=== PATIENT | female | born 1975 | race Caucasian/White ===

== ENCOUNTER 2017-05-01 14:13 | Inpatient (IN) | payer OTHER ==
[2017-05-01] MEDS ORDERED: MENTHOL/PHENOL 1 EACH UD MM PRN (15:13)
[2017-05-01] MEDS ORDERED: ACETAMINOPHEN 325 MG TABLET (FP) PO PRN (15:13)
[2017-05-01] MEDS ORDERED: MAGNESIUM CITRATE 300 ML BOTTLE PO PRN (15:13)
[2017-05-01] MEDS ORDERED: MAG HYDROX/AL HYDROX/SIMETH 30 ML UNIT-DOSE CUP PO PRN (15:13)
[2017-05-01] MEDS ORDERED: LOPERAMIDE HCL 2 MG CAPSULE PO PRN (15:13)
[2017-05-01] MEDS ORDERED: guaiFENesin/D-METHORPHAN HB 10 ML UNIT-DOSE CUPS PO PRN (15:13)
[2017-05-01] MEDS ORDERED: P-EPHED 60MG/TRIPROLIDI 2.5MG TABLET PO PRN (15:13)
[2017-05-01] MEDS ORDERED: LIDOCAINE VISCOUS 2% ORAL/TOP 20 ML UNIT-DOSE CUP MM PRN (15:19)
--- NOTE | 2017-05-01 16:34 | HP ---
[facility] Rehab Assess/Revision - Admission History Admitted to Rehab from: [facility] Date of Admission to Rehab: 05/01/17 - Vital signs Vital Signs: Vital Signs Period Temp Pulse Resp BP Sys/Brian Pulse Ox Last 24 Hr 98.1 F 83 18 106/80 - Findings Detox History & Physical reviewed: Yes Concur with findings: Yes Comments/Additional Findings: transferred from detox to rehab admission as per protocol Inpatient Rehab Admission - Initial Determination Are CD services needed?: Yes Free of communicable disease: Yes Not in need of hospitalization: Yes - Rehab Admission Criteria Previous failed treatment: Yes Poor recovery environment: Yes Comorbidities: Yes Lacks judgement: No Patient is meeting Inpatient Rehab admission criteria:: Yes
[2017-05-01] MEDS: AMOX TR/POT CLAV 875MG/125MG TABLETS (FP) PO SCH (17:08)
[2017-05-01] MEDS: NICOTINE POLACRILEX 4 MG GUM BUC PRN (17:08)
[2017-05-01] MEDS: FERROUS SO4 325 MG TABLET (FP) PO SCH (17:08)
[2017-05-01] MEDS: ALBUTEROL SO4 18 GM HFA INHALER IH PRN (17:53)
[2017-05-01] MEDS: FLUOCINONIDE 0.05% CREAM (60 GM TUBE) TP SCH ×2 (19:19→21:22)
[2017-05-01] MEDS: QUEtiapine FUMARATE 25 MG TABLET (FP) PO SCH (21:21)
[2017-05-01] MEDS: THIAMINE HCL 100 MG TABLET (FP) PO SCH (21:21)
[2017-05-01] MEDS: hydrOXYzine PAMOATE 50 MG CAPSULE (FP) PO PRN (21:22)
[2017-05-02] MEDS: IBUPROFEN 400 MG TABLET (FP) PO PRN ×2 (05:09→17:07)
[2017-05-02] MEDS: ALBUTEROL SO4 18 GM HFA INHALER IH PRN ×3 (05:09→14:07)
[2017-05-02] MEDS: FERROUS SO4 325 MG TABLET (FP) PO SCH ×3 (07:24→17:08)
[2017-05-02] MEDS: AMOX TR/POT CLAV 875MG/125MG TABLETS (FP) PO SCH ×2 (07:24→17:08)
[2017-05-02] MEDS: FLUOCINONIDE 0.05% CREAM (60 GM TUBE) TP SCH ×4 (09:25→21:24)
[2017-05-02] MEDS: NICOTINE 21 MG/24 HOURS TOPICAL PATCH TD SCH (09:26)
[2017-05-02] MEDS: PRENATAL VITAMINS W/ FOLIC ACID TABLET (FP) PO SCH (09:26)
--- NOTE | 2017-05-02 12:30 | PN ---
[facility] Progress Note Note: co depression psoriasis and dandruff already on fluocinode cream also co asthma worsened thinks env will add ketoconazole shampoo rec biw washing add singulair fu psych re co depression
[2017-05-02] MEDS: KETOCONAZOLE 2 % SHAMPOO 120 ML BOTTLE TP SCH (13:05)
[2017-05-02] MEDS ORDERED: PT OWN MED DRAWER 7, Y5N ONE ×2 (14:08→20:00)
[2017-05-02] MEDS: MONTELUKAST NA 10 MG TABLET PO SCH (21:21)
[2017-05-02] MEDS: THIAMINE HCL 100 MG TABLET (FP) PO SCH (21:21)
[2017-05-02] MEDS: QUEtiapine FUMARATE 25 MG TABLET (FP) PO SCH (21:23)
[2017-05-03] MEDS: ALBUTEROL SO4 18 GM HFA INHALER IH PRN ×3 (01:55→19:56)
[2017-05-03] MEDS ORDERED: PT OWN MED DRAWER 7, Y5N ONE ×2 (01:55→08:50)
[2017-05-03] MEDS: FERROUS SO4 325 MG TABLET (FP) PO SCH (07:40)
[2017-05-03] MEDS: AMOX TR/POT CLAV 875MG/125MG TABLETS (FP) PO SCH ×2 (07:41→17:36)
[2017-05-03] MEDS ORDERED: ONDANSETRON *ODT* 4 MG TABLET SL PRN (09:54)
--- NOTE | 2017-05-03 09:58 | PN ---
S Progress Note (SOAP) Subjective: c/o bilateral tooth jennifer nand swelling on antibiotics, continued opioid withdrawal sx s/p methadone detox, chills, nausea, vomiting, body aches, fatigue , insomnia, anxiety and depression Objective: 05/03/17 09:56 Vital Signs - 8 hr 05/03/17 05/03/17 03:30 07:43 Temperature 98.0 F Pulse Rate 73 Respiratory 16 18 Rate Blood Pressure 102/69 labs reviewed from last admission Assessment: 05/03/17 09:57 protoacted opioid withdrawal sx, dental caries Plan: cont antibiotics, symptomatic relief of withdrawal medication ordered, more aggressive pain amangement, fluids
[2017-05-03] MEDS ORDERED: ALBUTEROL SO4 2.5/IPRATROPIUM 0.5 INH SOL 3 ML VIAL.NEB. NEB PRN (10:01)
[2017-05-03] MEDS: PRENATAL VITAMINS W/ FOLIC ACID TABLET (FP) PO SCH (10:03)
[2017-05-03] MEDS: NICOTINE 21 MG/24 HOURS TOPICAL PATCH TD SCH (10:03)
[2017-05-03] MEDS: FLUOCINONIDE 0.05% CREAM (60 GM TUBE) TP SCH ×4 (10:03→21:52)
[2017-05-03] MEDS: cloNIDine HCL 0.1 MG TABLET PO SCH ×2 (10:06→21:50)
[2017-05-03] MEDS: CYCLOBENZAPRINE HCL 5 MG TABLET PO SCH (10:07)
[2017-05-03] MEDS: AMITRIPTYLINE HCL 25 MG TABLET (FP) PO SCH ×2 (10:07→21:49)
[2017-05-03] MEDS: NAPROXEN 500 MG TABLET (FP) PO SCH ×2 (10:07→21:50)
[2017-05-03] MEDS: PANTOPRAZOLE 40 MG TABLET (FP) PO SCH (10:08)
[2017-05-03] MEDS: DOCUSATE SODIUM 100 MG CAPSULE (FP) PO SCH ×2 (10:08→21:51)
[2017-05-03] MEDS ORDERED: ONDANSETRON *ODT* 4 MG TABLET SL ONE (10:15)
[2017-05-03] MEDS: GABAPENTIN 100 MG CAPSULE (FP) PO SCH ×2 (13:18→21:49)
[2017-05-03] MEDS: MONTELUKAST NA 10 MG TABLET PO SCH (21:49)
[2017-05-03] MEDS: THIAMINE HCL 100 MG TABLET (FP) PO SCH (21:49)
[2017-05-03] MEDS: QUEtiapine FUMARATE 25 MG TABLET (FP) PO SCH (21:50)
[2017-05-04] MEDS: GABAPENTIN 100 MG CAPSULE (FP) PO SCH ×3 (06:32→21:38)
[2017-05-04] MEDS: AMOX TR/POT CLAV 875MG/125MG TABLETS (FP) PO SCH ×2 (07:01→17:38)
[2017-05-04] MEDS ORDERED: PT OWN MED DRAWER 7, Y5N ONE ×3 (08:35→17:40)
[2017-05-04] MEDS: PRENATAL VITAMINS W/ FOLIC ACID TABLET (FP) PO SCH (10:22)
[2017-05-04] MEDS: CYCLOBENZAPRINE HCL 5 MG TABLET PO SCH (10:22)
[2017-05-04] MEDS: PANTOPRAZOLE 40 MG TABLET (FP) PO SCH (10:22)
[2017-05-04] MEDS: NAPROXEN 500 MG TABLET (FP) PO SCH ×2 (10:23→21:38)
[2017-05-04] MEDS: NICOTINE 21 MG/24 HOURS TOPICAL PATCH TD SCH (10:23)
[2017-05-04] MEDS: FLUOCINONIDE 0.05% CREAM (60 GM TUBE) TP SCH ×4 (10:23→21:39)
[2017-05-04] MEDS: NICOTINE POLACRILEX 4 MG GUM BUC PRN (10:24)
[2017-05-04] MEDS: cloNIDine HCL 0.1 MG TABLET PO SCH (10:26)
[2017-05-04] MEDS: ALBUTEROL SO4 18 GM HFA INHALER IH PRN ×2 (11:05→17:40)
[2017-05-04] MEDS: DOCUSATE SODIUM 100 MG CAPSULE (FP) PO SCH (21:37)
[2017-05-04] MEDS: MONTELUKAST NA 10 MG TABLET PO SCH (21:38)
[2017-05-04] MEDS: AMITRIPTYLINE HCL 25 MG TABLET (FP) PO SCH (21:38)
[2017-05-04] MEDS: QUEtiapine FUMARATE 25 MG TABLET (FP) PO SCH (21:38)
[2017-05-04] MEDS: THIAMINE HCL 100 MG TABLET (FP) PO SCH (21:38)
[2017-05-05] MEDS ORDERED: PT OWN MED DRAWER 7, Y5N ONE ×2 (00:20→08:48)
[2017-05-05] MEDS: GABAPENTIN 100 MG CAPSULE (FP) PO SCH ×3 (06:31→21:40)
[2017-05-05] MEDS: ALBUTEROL SO4 18 GM HFA INHALER IH PRN ×4 (06:32→21:42)
[2017-05-05] MEDS: NICOTINE POLACRILEX 4 MG GUM BUC PRN (07:11)
[2017-05-05] MEDS: AMOX TR/POT CLAV 875MG/125MG TABLETS (FP) PO SCH ×2 (07:12→17:35)
--- NOTE | 2017-05-05 10:15 | HP ---
Psychiatrist Admission - Data Date of interview: 05/05/17 Admission source: [address] [place] [address] Identifying data: This is the first admission to [address] [place] [address] for this 41 years old H single female mother of 2,undomiciled, unemployed,supported by Food stamps. Medical History: Significant for BA,Hep C,H/O Gastric bypass,Anemia,Tubal ligation. Psychiatric History: Reports no psychiatric history,but some sleeping difficulties on/off. Physical/Sexual Abuse/Trauma History: denies Vital Signs: Vital Signs - 24 hr 05/04/17 05/04/17 05/05/17 10:00 23:07 03:30 Temperature Pulse Rate 93 H 98 H Respiratory 18 Rate Blood Pressure 101/62 107/70 05/05/17 05/05/17 07:08 09:27 Temperature 98.1 F Pulse Rate 79 97 H Respiratory 18 Rate Blood Pressure 97/62 107/72 Allergies/Adverse Reactions: Allergies Allergy/AdvReac Type Severity Reaction Status Date / Time No Known Allergies Allergy Verified 04/26/17 10:35 Date of last physical exam: 04/26/17 Concur with the findings of this exam: Yes - Substance Abuse/Tx History Hx Alcohol Use: Yes (drinking since 16 yo,2 pints of vodka daily) Hx Substance Use: Yes (cocaine,crack since 20 yo,heroin IV since 20 yo,now sniffing 10 bags daily) Substance Use Type: Alcohol, Cocaine, Heroin Hx Substance Use Treatment: 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,longest abstinence 6 years) Mental Status Exam - Mental Status Exam Alert and Oriented to: Time, Place, Person Cognitive Function: Grossly Intact Patient Appearance: Unkempt Mood: Anxious Affect: Mood Congruent, Labile Patient Behavior: Cooperative Speech Pattern: Clear Voice Loudness: Normal Thought Process: Goal Oriented Thought Disorder: Not Present Hallucinations: Denies Suicidal Ideation: Denies Homicidal Ideation: Denies Insight/Judgement: Fair Sleep: Fair Appetite: Good Muscle strength/Tone: Normal Gait/Station: Normal Psychiatric Findings - Problem List (Olla 1, 2,3) (1) Drug-induced mood disorder Current Visit: Yes Status: Chronic (2) Asthma Current Visit: Yes Status: Chronic Qualifiers: Asthma severity: mild Asthma complication type: uncomplicated (3) GERD (gastroesophageal reflux disease) Current Visit: Yes Status: Chronic Qualifiers: (4) Nicotine dependence Current Visit: Yes Status: Chronic Qualifiers: (5) Alcohol dependence Current Visit: Yes Status: Chronic (6) Cocaine dependence Current Visit: Yes Status: Chronic (7) Opioid dependence Current Visit: Yes Status: Chronic (8) History of anemia Current Visit: Yes Status: Suspected - Initial Treatment Plan Initial Treatment Plan: Seroquel 25 mg po hs.Will monitor progress.
[2017-05-05] MEDS: NAPROXEN 500 MG TABLET (FP) PO SCH ×2 (10:24→21:40)
[2017-05-05] MEDS: PRENATAL VITAMINS W/ FOLIC ACID TABLET (FP) PO SCH (10:24)
[2017-05-05] MEDS: FLUOCINONIDE 0.05% CREAM (60 GM TUBE) TP SCH ×4 (10:24→21:40)
[2017-05-05] MEDS: PANTOPRAZOLE 40 MG TABLET (FP) PO SCH (10:24)
[2017-05-05] MEDS: CYCLOBENZAPRINE HCL 5 MG TABLET PO SCH (10:24)
[2017-05-05] MEDS: NICOTINE 21 MG/24 HOURS TOPICAL PATCH TD SCH (10:25)
[2017-05-05] MEDS: KETOCONAZOLE 2 % SHAMPOO 120 ML BOTTLE TP SCH (11:59)
[2017-05-05] MEDS: MAGNESIUM HYDROX 2400MG/30ML ORAL SUSPENSION 30 ML CUP PO PRN (13:17)
[2017-05-05] MEDS: DOCUSATE SODIUM 100 MG CAPSULE (FP) PO SCH (21:40)
[2017-05-05] MEDS: AMITRIPTYLINE HCL 25 MG TABLET (FP) PO SCH (21:40)
[2017-05-05] MEDS: MONTELUKAST NA 10 MG TABLET PO SCH (21:40)
[2017-05-05] MEDS: THIAMINE HCL 100 MG TABLET (FP) PO SCH (21:40)
[2017-05-05] MEDS: QUEtiapine FUMARATE 25 MG TABLET (FP) PO SCH (21:40)
[2017-05-06] MEDS: ALBUTEROL SO4 18 GM HFA INHALER IH PRN ×2 (04:40→12:12)
[2017-05-06] MEDS: GABAPENTIN 100 MG CAPSULE (FP) PO SCH ×3 (06:56→21:36)
[2017-05-06] MEDS: AMOX TR/POT CLAV 875MG/125MG TABLETS (FP) PO SCH ×2 (07:05→17:07)
[2017-05-06] MEDS ORDERED: PT OWN MED DRAWER 7, Y5N ONE ×3 (08:41→17:09)
[2017-05-06] MEDS: PANTOPRAZOLE 40 MG TABLET (FP) PO SCH (09:54)
[2017-05-06] MEDS: FLUOCINONIDE 0.05% CREAM (60 GM TUBE) TP SCH ×4 (09:54→21:37)
[2017-05-06] MEDS: CYCLOBENZAPRINE HCL 5 MG TABLET PO SCH (09:54)
[2017-05-06] MEDS: PRENATAL VITAMINS W/ FOLIC ACID TABLET (FP) PO SCH (09:55)
[2017-05-06] MEDS: NAPROXEN 500 MG TABLET (FP) PO SCH ×2 (09:55→21:36)
[2017-05-06] MEDS: NICOTINE 21 MG/24 HOURS TOPICAL PATCH TD SCH (09:55)
[2017-05-06] MEDS: hydrOXYzine PAMOATE 50 MG CAPSULE (FP) PO PRN ×2 (12:45→17:10)
[2017-05-06] MEDS: NICOTINE POLACRILEX 4 MG GUM BUC PRN (14:30)
[2017-05-06] MEDS: DOCUSATE SODIUM 100 MG CAPSULE (FP) PO SCH (21:36)
[2017-05-06] MEDS: MONTELUKAST NA 10 MG TABLET PO SCH (21:36)
[2017-05-06] MEDS: AMITRIPTYLINE HCL 25 MG TABLET (FP) PO SCH (21:36)
[2017-05-06] MEDS: THIAMINE HCL 100 MG TABLET (FP) PO SCH (21:36)
[2017-05-06] MEDS: QUEtiapine FUMARATE 25 MG TABLET (FP) PO SCH (21:36)
[2017-05-07] MEDS: ALBUTEROL SO4 18 GM HFA INHALER IH PRN ×2 (05:41→11:48)
[2017-05-07] MEDS: GABAPENTIN 100 MG CAPSULE (FP) PO SCH ×3 (06:45→21:38)
[2017-05-07] MEDS: AMOX TR/POT CLAV 875MG/125MG TABLETS (FP) PO SCH ×2 (07:02→17:47)
[2017-05-07] MEDS: NICOTINE 21 MG/24 HOURS TOPICAL PATCH TD SCH (10:01)
[2017-05-07] MEDS: CYCLOBENZAPRINE HCL 5 MG TABLET PO SCH (10:01)
[2017-05-07] MEDS: NICOTINE POLACRILEX 4 MG GUM BUC PRN (10:01)
[2017-05-07] MEDS: PRENATAL VITAMINS W/ FOLIC ACID TABLET (FP) PO SCH (10:01)
[2017-05-07] MEDS: PANTOPRAZOLE 40 MG TABLET (FP) PO SCH (10:01)
[2017-05-07] MEDS: NAPROXEN 500 MG TABLET (FP) PO SCH ×2 (10:01→21:38)
[2017-05-07] MEDS: FLUOCINONIDE 0.05% CREAM (60 GM TUBE) TP SCH ×4 (10:02→21:41)
[2017-05-07] MEDS: MAGNESIUM HYDROX 2400MG/30ML ORAL SUSPENSION 30 ML CUP PO PRN (12:45)
[2017-05-07] MEDS: hydrOXYzine PAMOATE 50 MG CAPSULE (FP) PO PRN (17:48)
[2017-05-07] MEDS ORDERED: MAGNESIUM CITRATE 300 ML BOTTLE PO PRN (21:29)
[2017-05-07] MEDS: THIAMINE HCL 100 MG TABLET (FP) PO SCH (21:38)
[2017-05-07] MEDS: QUEtiapine FUMARATE 25 MG TABLET (FP) PO SCH (21:38)
[2017-05-07] MEDS: MONTELUKAST NA 10 MG TABLET PO SCH (21:38)
[2017-05-07] MEDS: AMITRIPTYLINE HCL 25 MG TABLET (FP) PO SCH (21:38)
[2017-05-07] MEDS: DOCUSATE SODIUM 100 MG CAPSULE (FP) PO SCH (21:40)
[2017-05-08] MEDS: hydrOXYzine PAMOATE 50 MG CAPSULE (FP) PO PRN (01:02)
[2017-05-08] MEDS: ALBUTEROL SO4 18 GM HFA INHALER IH PRN ×3 (03:27→15:32)
[2017-05-08] MEDS: GABAPENTIN 100 MG CAPSULE (FP) PO SCH ×3 (06:21→21:29)
[2017-05-08] MEDS: AMOX TR/POT CLAV 875MG/125MG TABLETS (FP) PO SCH (07:03)
[2017-05-08] MEDS ORDERED: PT OWN MED DRAWER 7, Y5N ONE ×3 (08:48→15:31)
[2017-05-08] MEDS: PANTOPRAZOLE 40 MG TABLET (FP) PO SCH (10:46)
[2017-05-08] MEDS: FLUOCINONIDE 0.05% CREAM (60 GM TUBE) TP SCH (10:47)
[2017-05-08] MEDS: NAPROXEN 500 MG TABLET (FP) PO SCH ×2 (10:47→21:29)
[2017-05-08] MEDS: CYCLOBENZAPRINE HCL 5 MG TABLET PO SCH (10:47)
[2017-05-08] MEDS: PRENATAL VITAMINS W/ FOLIC ACID TABLET (FP) PO SCH (10:47)
[2017-05-08] MEDS: NICOTINE 21 MG/24 HOURS TOPICAL PATCH TD SCH (10:48)
[2017-05-08] MEDS: NICOTINE POLACRILEX 4 MG GUM BUC PRN ×2 (10:52→21:44)
[2017-05-08] MEDS: KETOCONAZOLE 2 % SHAMPOO 120 ML BOTTLE TP SCH (12:07)
--- NOTE | 2017-05-08 12:53 | PN ---
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
[2017-05-08] MEDS ORDERED: SENNOSIDES 8.6MG TABLET (FP) PO ONE (14:00)
[2017-05-08] MEDS: BETAMETHASONE DIP 0.05% TP LOTION 30 ML BOTTLE TP SCH ×2 (15:24→23:44)
[2017-05-08] MEDS: DOCUSATE SODIUM 100 MG CAPSULE (FP) PO SCH (21:28)
[2017-05-08] MEDS: THIAMINE HCL 100 MG TABLET (FP) PO SCH (21:28)
[2017-05-08] MEDS: SENNOSIDES 8.6MG TABLET (FP) PO SCH (21:29)
[2017-05-08] MEDS: QUEtiapine FUMARATE 25 MG TABLET (FP) PO SCH (21:29)
[2017-05-08] MEDS: MONTELUKAST NA 10 MG TABLET PO SCH (21:29)
[2017-05-08] MEDS: AMITRIPTYLINE HCL 25 MG TABLET (FP) PO SCH (23:44)
[2017-05-09] MEDS: GABAPENTIN 100 MG CAPSULE (FP) PO SCH ×3 (06:30→21:34)
[2017-05-09] MEDS: ALBUTEROL SO4 18 GM HFA INHALER IH PRN (06:31)
[2017-05-09] MEDS: NICOTINE POLACRILEX 4 MG GUM BUC PRN ×2 (06:50→10:23)
[2017-05-09] MEDS: NICOTINE 21 MG/24 HOURS TOPICAL PATCH TD SCH (10:21)
[2017-05-09] MEDS: BETAMETHASONE DIP 0.05% TP LOTION 30 ML BOTTLE TP SCH ×2 (10:21→21:37)
[2017-05-09] MEDS: NAPROXEN 500 MG TABLET (FP) PO SCH ×2 (10:21→21:34)
[2017-05-09] MEDS: PRENATAL VITAMINS W/ FOLIC ACID TABLET (FP) PO SCH (10:21)
[2017-05-09] MEDS: PANTOPRAZOLE 40 MG TABLET (FP) PO SCH (10:21)
[2017-05-09] MEDS: CYCLOBENZAPRINE HCL 5 MG TABLET PO SCH (10:21)
[2017-05-09] MEDS: DOCUSATE SODIUM 100 MG CAPSULE (FP) PO SCH (21:33)
[2017-05-09] MEDS: THIAMINE HCL 100 MG TABLET (FP) PO SCH (21:33)
[2017-05-09] MEDS: SENNOSIDES 8.6MG TABLET (FP) PO SCH (21:34)
[2017-05-09] MEDS: AMITRIPTYLINE HCL 25 MG TABLET (FP) PO SCH (21:34)
[2017-05-09] MEDS: QUEtiapine FUMARATE 25 MG TABLET (FP) PO SCH (21:34)
[2017-05-09] MEDS: MONTELUKAST NA 10 MG TABLET PO SCH (21:34)
[2017-05-09] MEDS ORDERED: PT OWN MED DRAWER 7, Y5N ONE (21:38)
[2017-05-10] MEDS: NICOTINE POLACRILEX 4 MG GUM BUC PRN ×2 (06:08→13:25)
[2017-05-10] MEDS: ALBUTEROL SO4 18 GM HFA INHALER IH PRN ×3 (06:08→15:10)
[2017-05-10] MEDS: GABAPENTIN 100 MG CAPSULE (FP) PO SCH ×3 (06:08→21:37)
[2017-05-10] MEDS: NAPROXEN 500 MG TABLET (FP) PO SCH ×2 (10:35→21:38)
[2017-05-10] MEDS: PANTOPRAZOLE 40 MG TABLET (FP) PO SCH (10:35)
[2017-05-10] MEDS: CYCLOBENZAPRINE HCL 5 MG TABLET PO SCH (10:35)
[2017-05-10] MEDS: PRENATAL VITAMINS W/ FOLIC ACID TABLET (FP) PO SCH (10:36)
[2017-05-10] MEDS: NICOTINE 21 MG/24 HOURS TOPICAL PATCH TD SCH (10:36)
[2017-05-10] MEDS: BETAMETHASONE DIP 0.05% TP LOTION 30 ML BOTTLE TP SCH ×2 (10:37→21:40)
--- NOTE | 2017-05-10 11:11 | PN ---
[facility] Progress Note (SOAP) Subjective: patient was thought to perhaps have taken another patient's medication ( methadone) but denies use, reports continued opioid withdrawal sx however - anxiety, sweats, insomnia, chills. unrelieve with symoptomatic medications after opioid methadone detox. reports using a bundel sniffs daily on the street or street methadone 80mg which caused some sedation. Objective: 05/10/17 11:09 Vital Signs - 8 hr 05/10/17 05/10/17 03:30 07:35 Temperature 98.2 F Pulse Rate 66 Respiratory 18 18 Rate Blood Pressure 100/64 nad, a and o x3, no tremors, no sweatsno goosebumps Assessment: 05/10/17 11:10 protracted opioid withdrawal with cravings reported Plan: cont symptomatic relief, utox, discussed starting suboxone and continuing MAT in [facility]
[2017-05-10] MEDS: THIAMINE HCL 100 MG TABLET (FP) PO SCH (21:37)
[2017-05-10] MEDS: DOCUSATE SODIUM 100 MG CAPSULE (FP) PO SCH (21:38)
[2017-05-10] MEDS: AMITRIPTYLINE HCL 25 MG TABLET (FP) PO SCH (21:38)
[2017-05-10] MEDS: QUEtiapine FUMARATE 25 MG TABLET (FP) PO SCH (21:38)
[2017-05-10] MEDS: SENNOSIDES 8.6MG TABLET (FP) PO SCH (21:38)
[2017-05-10] MEDS: MONTELUKAST NA 10 MG TABLET PO SCH (21:38)
[2017-05-11] MEDS: ALBUTEROL SO4 18 GM HFA INHALER IH PRN ×2 (06:45→12:05)
[2017-05-11] MEDS: GABAPENTIN 100 MG CAPSULE (FP) PO SCH ×3 (06:45→21:45)
--- NOTE | 2017-05-11 09:13 | PN ---
Psychiatric Progress Note Vital Signs: Vital Signs Period Temp Pulse Resp BP Sys/Brian Pulse Ox Last 24 Hr 97.8 F 74 18-18 116/78 Date of Session: 05/10/17 Chief Complaint:: Case has been discussed with team(Dr,Nurse and Clinical school transportation supervisor). HPI: Patient addressed alcohol,Cocaine and Opioid dependence comorbid with substance induced mood disorder. ROS: Significant for GERD,Anemia,BA. Current Medications: Active Medications Generic Name Dose Route Start Last Admin Trade Name Freq PRN Reason Stop Dose Admin Acetaminophen 650 mg 05/01/17 15:13 05/09/17 18:46 Tylenol - PO 650 mg Q4H PRN Administration FEVER OR PAIN Al Hydroxide/Mg Hydroxide 30 ml 05/01/17 15:13 05/06/17 12:11 Mylanta Oral Suspension - PO 30 ml Q6H PRN Administration DYSPEPSIA Albuterol Sulfate 2 puff 05/01/17 15:14 05/11/17 06:45 Ventolin Hfa Inhaler - IH 2 puff Q4H PRN Administration ASTHMA Albuterol/Ipratropium 1 amp 05/03/17 10:01 Duoneb - NEB Q4H PRN SHORTNESS OF BREATH Amitriptyline HCl 50 mg 05/08/17 22:00 05/10/17 21:38 Elavil - PO 50 mg HS [place] Administration Betamethasone Dipropionate 1 applic 05/08/17 14:00 05/10/17 21:40 Diprolene 0.05% Lotion - TP 1 applic BID [place] Administration Cyclobenzaprine HCl 5 mg 05/03/17 10:00 05/10/17 10:35 Cyclobenzaprine Hcl PO 5 mg DAILY [place] Administration Docusate Sodium 300 mg 05/03/17 10:00 05/10/17 21:38 Colace - PO 300 mg HS [place] Administration Eucalyptus/Menthol/Phenol/Sorbitol 1 each 05/01/17 15:13 Cepastat Lozenge - MM Q4H PRN SORE THROAT Gabapentin 200 mg 05/08/17 14:00 05/11/17 06:45 Neurontin - PO 200 mg TID [place] Administration Guaifenesin 10 ml 05/01/17 15:13 Robitussin Dm - PO Q6H PRN COUGH Hydroxyzine Pamoate 50 mg 05/01/17 15:13 05/08/17 01:02 Vistaril - PO 50 mg Q4H PRN Administration AGITATION Ketoconazole 1 applic 05/02/17 12:30 05/08/17 12:07 Nizoral 2% Shampoo - TP 1 applic Q72H [place] Administration Lidocaine HCl 20 ml 05/01/17 15:19 Xylocaine 2% Viscous Oral - MM Q6HPO PRN ORAL PAIN/MOUTH SORES Loperamide HCl 4 mg 05/01/17 15:13 Imodium - PO Q6H PRN DIARRHEA Magnesium Citrate 300 ml 05/07/17 21:29 05/07/17 21:40 Citroma - PO 300 ml PRN PRN Administration CONSTIPATION Magnesium Hydroxide 30 ml 05/01/17 15:13 05/07/17 12:45 Milk Of Magnesia - PO 30 ml DAILY PRN Administration CONSTIPATION Montelukast Sodium 10 mg 05/02/17 22:00 05/10/17 21:38 Singulair - PO 10 mg HS [place] Administration Naproxen 500 mg 05/03/17 10:00 05/10/17 21:38 Naprosyn - PO 500 mg BID [place] Administration Nicotine 21 mg 05/02/17 10:00 05/10/17 10:36 Nicoderm Patch - TD Not Given DAILY [place] Nicotine Polacrilex 4 mg 05/01/17 15:13 05/10/17 13:25 Nicorette Gum - BUC 4 mg Q2H PRN Administration NICOTINE REPLACEMENT RX Ondansetron HCl 8 mg 05/03/17 09:54 05/04/17 17:46 Zofran Odt - SL 8 mg Q8H PRN Administration NAUSEA AND/OR VOMITING Pantoprazole Sodium 40 mg 05/03/17 10:00 05/10/17 10:35 Protonix - PO 40 mg DAILY [place] Administration Multivit/Folic Acid/Iron 1 tab 05/02/17 10:00 05/10/17 10:36 Vitamins (Sjr) - PO 1 tab DAILY [place] Administration Pseudoephedrine/Triprolidine 1 combo 05/01/17 15:13 Actifed - PO TID PRN NASAL CONGESTION Quetiapine Fumarate 25 mg 05/01/17 22:00 05/10/17 21:38 Seroquel - PO 25 mg HS [place] Administration Senna 2 tab 05/08/17 22:00 05/10/17 21:38 Senna - PO 2 tab HS [place] Administration Thiamine HCl 100 mg 05/01/17 22:00 05/10/17 21:37 Vitamin B1 - PO 100 mg HS [place] Administration Current Side Effect: No Lab tests ordered: No Lab tests reviewed: Yes Provider note:: Patient was seen in my office in the presence of Nurse and Clinical Armhole Sewer due to her inappropriate behavior.According to the patient she brought some liquid Methadone to the unit and took it on monday.Security was called to perform room search.Nothing was found.Contract has been signed by the patient that she will be discharged immediately if any other violations will be noticed. Supporive therapy provided including discussion of coping skills,support system utilization as well as rules and regulations of the unit.Psychoeducation has been provided including discussion of treatment plan and psychotropic medications.Patient verbalized understanding and compliance. Total face to face time:: 35 Mental Status Exam - Mental Status Exam Alert and Oriented to: Time, Place, Person Cognitive Function: Fair Patient Appearance: Unkempt Mood: Anxious Affect: Mood Congruent, Labile Patient Behavior: Restless, Cooperative Speech Pattern: Clear Voice Loudness: Normal Thought Process: Goal Oriented Thought Disorder: Not Present Hallucinations: Denies Suicidal Ideation: Denies Homicidal Ideation: Denies Insight/Judgement: Fair Sleep: Fair Appetite: Fair Muscle strength/Tone: Normal Gait/Station: Normal Psychiatric Treatment Plan - Problem List (1) Drug-induced mood disorder Current Visit: Yes (2) Asthma Current Visit: Yes Qualifiers: Asthma severity: mild Asthma complication type: uncomplicated (3) GERD (gastroesophageal reflux disease) Current Visit: Yes Qualifiers: (4) Nicotine dependence Current Visit: Yes Qualifiers: (5) Alcohol dependence Current Visit: Yes (6) Cocaine dependence Current Visit: Yes (7) Opioid dependence Current Visit: Yes (8) History of anemia Current Visit: Yes
[2017-05-11] MEDS: PANTOPRAZOLE 40 MG TABLET (FP) PO SCH (10:07)
[2017-05-11] MEDS: NICOTINE 21 MG/24 HOURS TOPICAL PATCH TD SCH (10:08)
[2017-05-11] MEDS: CYCLOBENZAPRINE HCL 5 MG TABLET PO SCH (10:08)
[2017-05-11] MEDS: NAPROXEN 500 MG TABLET (FP) PO SCH ×2 (10:08→21:45)
[2017-05-11] MEDS: PRENATAL VITAMINS W/ FOLIC ACID TABLET (FP) PO SCH (10:08)
[2017-05-11] MEDS: NICOTINE POLACRILEX 4 MG GUM BUC PRN (10:09)
[2017-05-11] MEDS: BETAMETHASONE DIP 0.05% TP LOTION 30 ML BOTTLE TP SCH ×2 (10:09→21:45)
[2017-05-11] MEDS: KETOCONAZOLE 2 % SHAMPOO 120 ML BOTTLE TP SCH (13:03)
[2017-05-11] MEDS: THIAMINE HCL 100 MG TABLET (FP) PO SCH (21:42)
[2017-05-11] MEDS: SENNOSIDES 8.6MG TABLET (FP) PO SCH (21:44)
[2017-05-11] MEDS: MONTELUKAST NA 10 MG TABLET PO SCH (21:44)
[2017-05-11] MEDS: QUEtiapine FUMARATE 25 MG TABLET (FP) PO SCH (21:44)
[2017-05-11] MEDS: DOCUSATE SODIUM 100 MG CAPSULE (FP) PO SCH (21:45)
[2017-05-11] MEDS: AMITRIPTYLINE HCL 25 MG TABLET (FP) PO SCH (21:45)
[2017-05-12] MEDS: ALBUTEROL SO4 18 GM HFA INHALER IH PRN (04:36)
[2017-05-12] MEDS: GABAPENTIN 100 MG CAPSULE (FP) PO SCH ×3 (07:06→21:41)
[2017-05-12] MEDS: CYCLOBENZAPRINE HCL 5 MG TABLET PO SCH (10:39)
[2017-05-12] MEDS: PRENATAL VITAMINS W/ FOLIC ACID TABLET (FP) PO SCH (10:39)
[2017-05-12] MEDS: NAPROXEN 500 MG TABLET (FP) PO SCH ×2 (10:41→21:41)
[2017-05-12] MEDS: PANTOPRAZOLE 40 MG TABLET (FP) PO SCH (10:42)
[2017-05-12] MEDS: BETAMETHASONE DIP 0.05% TP LOTION 30 ML BOTTLE TP SCH ×2 (10:42→21:43)
[2017-05-12] MEDS: NICOTINE 21 MG/24 HOURS TOPICAL PATCH TD SCH (10:42)
[2017-05-12] MEDS: THIAMINE HCL 100 MG TABLET (FP) PO SCH (21:40)
[2017-05-12] MEDS: SENNOSIDES 8.6MG TABLET (FP) PO SCH (21:41)
[2017-05-12] MEDS: DOCUSATE SODIUM 100 MG CAPSULE (FP) PO SCH (21:41)
[2017-05-12] MEDS: QUEtiapine FUMARATE 25 MG TABLET (FP) PO SCH (21:41)
[2017-05-12] MEDS: MONTELUKAST NA 10 MG TABLET PO SCH (21:41)
[2017-05-12] MEDS: AMITRIPTYLINE HCL 25 MG TABLET (FP) PO SCH (21:41)
[2017-05-13] MEDS: GABAPENTIN 100 MG CAPSULE (FP) PO SCH ×3 (06:45→21:38)
[2017-05-13] MEDS: ALBUTEROL SO4 18 GM HFA INHALER IH PRN ×2 (06:46→17:10)
[2017-05-13] MEDS: BETAMETHASONE DIP 0.05% TP LOTION 30 ML BOTTLE TP SCH ×2 (09:32→21:38)
[2017-05-13] MEDS: CYCLOBENZAPRINE HCL 5 MG TABLET PO SCH (09:32)
[2017-05-13] MEDS: PRENATAL VITAMINS W/ FOLIC ACID TABLET (FP) PO SCH (09:33)
[2017-05-13] MEDS: NICOTINE POLACRILEX 4 MG GUM BUC PRN ×2 (09:33→19:05)
[2017-05-13] MEDS: PANTOPRAZOLE 40 MG TABLET (FP) PO SCH (09:33)
[2017-05-13] MEDS: NICOTINE 21 MG/24 HOURS TOPICAL PATCH TD SCH (09:33)
[2017-05-13] MEDS: NAPROXEN 500 MG TABLET (FP) PO SCH ×2 (09:33→21:36)
[2017-05-13] MEDS: QUEtiapine FUMARATE 25 MG TABLET (FP) PO SCH (21:36)
[2017-05-13] MEDS: SENNOSIDES 8.6MG TABLET (FP) PO SCH (21:36)
[2017-05-13] MEDS: AMITRIPTYLINE HCL 25 MG TABLET (FP) PO SCH (21:37)
[2017-05-13] MEDS: DOCUSATE SODIUM 100 MG CAPSULE (FP) PO SCH (21:37)
[2017-05-13] MEDS: THIAMINE HCL 100 MG TABLET (FP) PO SCH (21:38)
[2017-05-13] MEDS: MONTELUKAST NA 10 MG TABLET PO SCH (21:38)
[2017-05-14] MEDS: ALBUTEROL SO4 18 GM HFA INHALER IH PRN ×2 (06:41→17:01)
[2017-05-14] MEDS: GABAPENTIN 100 MG CAPSULE (FP) PO SCH ×3 (06:42→21:09)
[2017-05-14] MEDS: PRENATAL VITAMINS W/ FOLIC ACID TABLET (FP) PO SCH (09:48)
[2017-05-14] MEDS: CYCLOBENZAPRINE HCL 5 MG TABLET PO SCH (09:48)
[2017-05-14] MEDS: BETAMETHASONE DIP 0.05% TP LOTION 30 ML BOTTLE TP SCH ×2 (09:48→21:10)
[2017-05-14] MEDS: NAPROXEN 500 MG TABLET (FP) PO SCH ×2 (09:48→21:09)
[2017-05-14] MEDS: NICOTINE POLACRILEX 4 MG GUM BUC PRN ×2 (09:49→13:19)
[2017-05-14] MEDS: PANTOPRAZOLE 40 MG TABLET (FP) PO SCH (09:49)
[2017-05-14] MEDS: NICOTINE 21 MG/24 HOURS TOPICAL PATCH TD SCH (09:49)
[2017-05-14] MEDS: KETOCONAZOLE 2 % SHAMPOO 120 ML BOTTLE TP SCH (11:43)
[2017-05-14] MEDS: MAGNESIUM HYDROX 2400MG/30ML ORAL SUSPENSION 30 ML CUP PO PRN (17:51)
[2017-05-14] MEDS: MONTELUKAST NA 10 MG TABLET PO SCH (21:09)
[2017-05-14] MEDS: SENNOSIDES 8.6MG TABLET (FP) PO SCH (21:09)
[2017-05-14] MEDS: THIAMINE HCL 100 MG TABLET (FP) PO SCH (21:09)
[2017-05-14] MEDS: AMITRIPTYLINE HCL 25 MG TABLET (FP) PO SCH (21:09)
[2017-05-14] MEDS: DOCUSATE SODIUM 100 MG CAPSULE (FP) PO SCH (21:10)
[2017-05-14] MEDS: QUEtiapine FUMARATE 25 MG TABLET (FP) PO SCH (21:10)
[2017-05-15] MEDS: ALBUTEROL SO4 18 GM HFA INHALER IH PRN ×2 (02:12→06:33)
[2017-05-15] MEDS: GABAPENTIN 100 MG CAPSULE (FP) PO SCH (06:33)
[2017-05-15 07:03] VITALS: BP 117/77; PULSE 79; TEMP 98.5
[2017-05-15] MEDS ORDERED: PT OWN MED DRAWER 7, Y5N ONE (08:39)
[2017-05-15] MEDS: NICOTINE 21 MG/24 HOURS TOPICAL PATCH TD SCH (09:05)
[2017-05-15] MEDS: CYCLOBENZAPRINE HCL 5 MG TABLET PO SCH (09:05)
[2017-05-15] MEDS: PANTOPRAZOLE 40 MG TABLET (FP) PO SCH (09:05)
[2017-05-15] MEDS: PRENATAL VITAMINS W/ FOLIC ACID TABLET (FP) PO SCH (09:05)
[2017-05-15] MEDS: NAPROXEN 500 MG TABLET (FP) PO SCH (09:06)
[2017-05-15] MEDS: BETAMETHASONE DIP 0.05% TP LOTION 30 ML BOTTLE TP SCH (09:06)
--- NOTE | 2017-05-15 09:47 | PN ---
Psychiatric Progress Note Vital Signs: Vital Signs Period Temp Pulse Resp BP Sys/Brian Pulse Ox Last 24 Hr 98.5 F 79 18-18 117/77 Date of Session: 05/15/17 Chief Complaint:: Discharge visit HPI: Alcohol,Cocaine and Opioid dependence comorbid with Substance induced mood disorder. ROS: Significant for BA,GERD,Anemia. Current Medications: Active Medications Generic Name Dose Route Start Last Admin Trade Name Freq PRN Reason Stop Dose Admin Acetaminophen 650 mg 05/01/17 15:13 05/09/17 18:46 Tylenol - PO 650 mg Q4H PRN Administration FEVER OR PAIN Al Hydroxide/Mg Hydroxide 30 ml 05/01/17 15:13 05/06/17 12:11 Mylanta Oral Suspension - PO 30 ml Q6H PRN Administration DYSPEPSIA Albuterol Sulfate 2 puff 05/01/17 15:14 05/15/17 06:33 Ventolin Hfa Inhaler - IH 2 puff Q4H PRN Administration ASTHMA Albuterol/Ipratropium 1 amp 05/03/17 10:01 Duoneb - NEB Q4H PRN SHORTNESS OF BREATH Amitriptyline HCl 50 mg 05/08/17 22:00 05/14/17 21:09 Elavil - PO 50 mg HS [place] Administration Betamethasone Dipropionate 1 applic 05/08/17 14:00 05/15/17 09:06 Diprolene 0.05% Lotion - TP Not Given BID [place] Cyclobenzaprine HCl 5 mg 05/03/17 10:00 05/15/17 09:05 Cyclobenzaprine Hcl PO 5 mg DAILY [place] Administration Docusate Sodium 300 mg 05/03/17 10:00 05/14/17 21:10 Colace - PO 300 mg HS [place] Administration Eucalyptus/Menthol/Phenol/Sorbitol 1 each 05/01/17 15:13 Cepastat Lozenge - MM Q4H PRN SORE THROAT Gabapentin 200 mg 05/08/17 14:00 05/15/17 06:33 Neurontin - PO 200 mg TID [place] Administration Guaifenesin 10 ml 05/01/17 15:13 Robitussin Dm - PO Q6H PRN COUGH Hydroxyzine Pamoate 50 mg 05/01/17 15:13 05/08/17 01:02 Vistaril - PO 50 mg Q4H PRN Administration AGITATION Ketoconazole 1 applic 05/02/17 12:30 05/14/17 11:43 Nizoral 2% Shampoo - TP Not Given Q72H [place] Lidocaine HCl 20 ml 05/01/17 15:19 Xylocaine 2% Viscous Oral - MM Q6HPO PRN ORAL PAIN/MOUTH SORES Loperamide HCl 4 mg 05/01/17 15:13 Imodium - PO Q6H PRN DIARRHEA Magnesium Citrate 300 ml 05/07/17 21:29 05/07/17 21:40 Citroma - PO 300 ml PRN PRN Administration CONSTIPATION Magnesium Hydroxide 30 ml 05/01/17 15:13 05/14/17 17:51 Milk Of Magnesia - PO 30 ml DAILY PRN Administration CONSTIPATION Montelukast Sodium 10 mg 05/02/17 22:00 05/14/17 21:09 Singulair - PO 10 mg HS [place] Administration Naproxen 500 mg 05/03/17 10:00 05/15/17 09:06 Naprosyn - PO Not Given BID [place] Nicotine 21 mg 05/02/17 10:00 05/15/17 09:05 Nicoderm Patch - TD Not Given DAILY [place] Nicotine Polacrilex 4 mg 05/01/17 15:13 05/14/17 13:19 Nicorette Gum - BUC 4 mg Q2H PRN Administration NICOTINE REPLACEMENT RX Ondansetron HCl 8 mg 05/03/17 09:54 05/04/17 17:46 Zofran Odt - SL 8 mg Q8H PRN Administration NAUSEA AND/OR VOMITING Pantoprazole Sodium 40 mg 05/03/17 10:00 05/15/17 09:05 Protonix - PO 40 mg DAILY [place] Administration Multivit/Folic Acid/Iron 1 tab 05/02/17 10:00 05/15/17 09:05 Vitamins (Sjr) - PO 1 tab DAILY [place] Administration Pseudoephedrine/Triprolidine 1 combo 05/01/17 15:13 Actifed - PO TID PRN NASAL CONGESTION Quetiapine Fumarate 25 mg 05/01/17 22:00 05/14/17 21:10 Seroquel - PO 25 mg HS [place] Administration Senna 2 tab 05/08/17 22:00 05/14/17 21:09 Senna - PO 2 tab HS [place] Administration Thiamine HCl 100 mg 05/01/17 22:00 05/14/17 21:09 Vitamin B1 - PO 100 mg HS [place] Administration Current Side Effect: No Lab tests ordered: No Lab tests reviewed: Yes Provider note:: Patient completed this program today.she has met her treatment goals and will continue to address her issues on outpatient basis at [facility].Patient reports finding Elavil 50 mg po hs,Neurontin 200 mg po tid and Seroquel 25 mg po hs help to cope with mood instability,depression, anxiety,insomnia.Scripts for 30 days provided. Therapy provided focusing on relapse prevention including discussion of coping skills,support utilization to maintain recovery. Patient is stable for discharge today. Total face to face time:: 30 Mental Status Exam - Mental Status Exam Alert and Oriented to: Time, Place, Person Cognitive Function: Grossly Intact Patient Appearance: Well Groomed Mood: Euthymic Affect: Appropriate Patient Behavior: Appropriate, Cooperative Speech Pattern: Clear Voice Loudness: Normal Thought Process: Goal Oriented Thought Disorder: Not Present Hallucinations: Denies Suicidal Ideation: Denies Homicidal Ideation: Denies Insight/Judgement: Fair Sleep: Fair Appetite: Good Muscle strength/Tone: Normal Gait/Station: Normal Psychiatric Treatment Plan - Problem List (2) Asthma Qualifiers: Asthma severity: mild Asthma complication type: uncomplicated (3) GERD (gastroesophageal reflux disease) Qualifiers: (4) Nicotine dependence Qualifiers:
== END 2017-05-15 09:45 | disposition home or self-care (01) | DRG 772 ==
LOC: YASAS 14:13 → Y3E 14:14
PROVIDERS: ADMIT Psychiatry & Neurology Psychiatry; ATTEND Psychiatry & Neurology Psychiatry
PROC: HZ42ZZZ Group Counseling for Substance Abuse Treatment, Cognitive-Behavioral (ICD-10-PCS; principal; 2017-05-01)
DX: F11.20 Opioid dependence, uncomplicated (principal); F10.20 Alcohol dependence, uncomplicated; F14.20 Cocaine dependence, uncomplicated; F17.210 Nicotine dependence, cigarettes, uncomplicated; F19.24 Other psychoactive substance dependence with psychoactive substance-induced mood disorder; J45.20 Mild intermittent asthma, uncomplicated; K21.9 Gastro-esophageal reflux disease without esophagitis; D64.9 Anemia, unspecified; Z59.0 Homelessness